=== PATIENT | male | born 1990 | race Two or more races ===

== ENCOUNTER 2020-08-16 20:01 | Emergency (ER) | payer OTHER, SELFPAY ==
[2020-08-16 20:12] VITALS: BP 121/87; PULSE 96; RESP 16; TEMP 36.8; O2SAT 99; BMI 38.7
--- NOTE | 2020-08-16 23:00 | CT_ITS ---
EXAMINATION: CT HEAD WITHOUT CONTRAST CLINICAL INFORMATION: Headache. COMPARISON: None. TECHNIQUE: Contiguous helical images of the brain were obtained without IV contrast. Multiplanar reconstructions were performed. DLP: 774 mGy-cm. FINDINGS: There are no pathologic extra-axial fluid collections. The lateral and third ventricles are prominent and age discordant. The bifrontal dimension at the level of the third ventricle is 4.4 cm. There is equivocal low-attenuation about both frontal horns possibly retail representative of transependymal flow of CSF. There are no demonstrable obstructing lesions. The fourth ventricle is of normal caliber. There is no evidence for acute intraparenchymal hemorrhage or infarct. There is neither mass nor mass effect. There is no shift of midline structures. The paranasal sinuses and mastoid air cells are clear. There are no osseous lesions. IMPRESSION: Lateral and third ventriculomegaly with possible transependymal flow of CSF without demonstrable obstructing lesions. Recommendation is for correlation with brain MRI for identification of the etiology for the dilated ventricles. No acute intraparenchymal or extra-axial hemorrhage is demonstrable. Automated exposure control (Care Dose) Adjustment of the mA and/or kv according to patient size (this includes techniques or standardized protocols for targeted exams where dose is matched to indication / reason for exam; i.e. extremities or head).
--- NOTE | 2020-08-16 23:01 | ED.HA ---
HPI - Headache General Chief Complaint: Headache Stated Complaint: HEADACHE Time Seen by Provider: 08/16/20 23:00 History of Present Illness HPI Narrative: Patient is a 30-year-old male presents today with headache that is on and off. On going for about a month. No fever no chills. No focal weakness. No diaphoresis. Patient did have some nausea associated with this headache. Seems to get worse with change in position. There is no fever no coughing or congestion no neck pain. Vision grossly about the same. Patient never had headache like this before. It comes on intensely for about an hour and it goes away. In in a comes back again. Patient denies any family history of sudden . Any history of subarachnoid hemorrhage. Any history of traveling. No coughing or congestion or upper respiratory symptoms. No change in smell or taste. No history of migraine. MD elicited complaint: headache Related Data Allergies Allergy/AdvReac Type Severity Reaction Status Date / Time No Known Allergies Allergy Verified 08/16/20 20:16 Review of Systems Review of Systems: Constitutional: No Weight loss, No Fever, No Chills, No Night Sweats, No Fatigue, No Malaise ENT/Mouth: No Hearing loss, No Ear Pain, No Nasal Congestion, No Sinus Pain, No Hoarseness, No sore throat, No Rhinorrhea, No Swallowing Difficulty Eyes: No Eye Pain, No Swelling, No Redness, No Foreign Body, No Discharge, No Vision Changes Cardiovascular: No Chest Pain, No SOB, No Dyspnea on Exertion, No Orthopnea, No Edema, No Palpitations Respiratory: No Cough, No Sputum, No Wheezing, No Smoke Exposure, No Dyspnea Gastrointestinal: No Nausea, No Vomiting, No Diarrhea, No Constipation, No abdominal Pain, No Hematochezia, No Melena Genitourinary: no irregular bleeding, No Dysuria, No Urinary Frequency, No Hematuria, No Urinary Incontinence, No Urgency, No Flank Pain, No Urinary Flow Changes, No Hesitancy Musculoskeletal: No joint pain, No Myalgias, No Joint Swelling Skin: No Skin Lesions, No rash Neuro: No Weakness, No Numbness, No Paresthesias, No Loss of Consciousness, No Dizziness, + Headache Psych: No Anxiety/Panic, No Depression, No SI/HI/AH/VH, No Social Issues, Heme/Lymph: No Bruising, No Bleeding,No Lymphadenopathy Endocrine: No Polyuria, No Polydipsia, No Temperature Intolerance [facility] Past Medical History Attestation statement: The following information was validated with the patient. Medical History Asthma Social History Social History Advance Directives: No Advance Directives Information Provided: No Physical Exam Vital Signs: Vital Signs: Vital Signs Temp Pulse Resp BP Pulse Ox 08/16/20 20:12 98.2 F 96 16 121/87 99 Body Mass Index 38.7 Appearance: Alert. Oriented X3. No acute distress. Eyes: Pupils equal, round and reactive to light. ENT: Pharynx normal. Neck: Normal inspection. Neck supple. No lymph nodes noted. No crepitus CVS: Normal heart rate and rhythm. Pulses normal. Normal S1 and S2 Respiratory: No respiratory distress. Breath sounds normal. No Wheezing. No rales Abdomen: Soft and nontender. No rigidity. No distention. good BS x4 Skin: Skin warm and dry. Normal skin color. Normal skin turgor. Extremities: No lower extremity edema. Neurovascular intact to all extremities. No Lacerations. No Rash Neuro: Oriented X 3. No motor deficit. No sensory deficit. Moving all extermities. No slurred speech MDM - Headache MDM Narrative Medical decision making narrative: CT scan of the head showed no acute evidence of bleeding. No acute evidence of fracture. No mass. It did show dilated ventricles. Questionable significance. The finding was discussed with radiology. Patient will need an outpatient MRI. neurologically intact. Patient has no evidence for meningitis. In stable condition. Symptom has resolved. Will discharge patient home close follow-up with Dr. misael borrego the next few days and get MRI done on an outpatient basis. Differential Diagnosis Differential diagnosis: Likely headache Medical Records Attestation: I reviewed the patient's medical records. Lab Data Result diagrams: 08/17/20 00:05 08/17/20 00:05 Labs: Lab Results 08/17/20 08/17/20 Range/Units 00:05 00:05 WBC 15.2 H (4.8-10.8) X10*3/uL RBC 5.37 (4.60-5.80) X10*6/uL Hgb 15.2 (14.0-18.0) g/dl Hct 46.4 (42-52) % MCV 86.4 (80-98) fL MCH 28.3 (27.0-33.0) pg MCHC 32.8 (31.0-36.0) g/dl RDW 13.4 (11.0-16.0) % Plt Count 343 (160-400) X10*3/uL MPV 10.5 (9.4-12.4) fL Immature Gran % (Auto) 0.5 H (0.0-0.4) % Neut % (Auto) 81.0 H (45-73) % Lymph % (Auto) 11.8 L (20-40) % [place] % (Auto) 5.3 (2-11) % Eos % (Auto) 0.9 (0-4) % Baso % (Auto) 0.5 (0-2) % Lymph # (Auto) 1.8 (1.2-4.9) X10*3/uL [place] # (Auto) 0.8 (0.1-1.2) X10*3/uL Eos # (Auto) 0.1 (0.0-0.4) X10*3/uL Baso # (Auto) 0.1 (0.0-0.2) X10*3/uL Abs Immat Gran (auto) 0.08 H (0.00-0.03) X10*3/uL Absolute Neuts (auto) 12.3 H (2.0-8.3) X10*3/uL Absolute Nucleated RBC 0.000 (0.0-0.012) X10*3/uL Nucleated RBC % (auto) 0.0 (0.0-0.2) /100WBC Sodium 139 (135-145) mmol/L Potassium 4.2 (3.3-5.1) mmol/l Chloride 98 (96-108) mmol/L Carbon Dioxide 29 (22-29) mmol/L Anion Gap 16 (12-20) BUN 9 (9-16) mg/dL Creatinine 0.81 (0.5-1.4) mg/dL Estim Creat Clear Calc 201.7 Estimated GFR > 60 Random Glucose 107 (60-115) mg/dL Calcium 10.3 H (8.4-10.2) mg/dL Total Bilirubin 0.5 (0.0-1.0) mg/dL Direct Bilirubin 0.2 (0.0-0.5) mg/dL AST 19 (5-37) U/L ALT 39 (0-40) U/L Alkaline Phosphatase 66 (39-117) U/L Total Protein 7.3 (6.5-8.0) g/dL Albumin 4.7 (3.5-5.0) g/dL Discharge Plan Discharge Clinical Impression: Headache Patient Disposition: Home, Self-Care Instructions: Acute Headache (ED) Referrals: Richard Álvarez MD [Primary Care Provider] - 2 days ( Please get MRI done within the next few days. Your CT scan showed dilated ventricle of questionable significance. Please follow-up closely.)
[2020-08-17 00:13] LABS: MANUAL DIFF FLAG NO
[2020-08-17 00:14] LABS: Basophils Absolute Auto 0.1 X10*3/uL (0.0-0.2); Basophils Percent Auto 0.5 % (0-2); Eosinophils Absolute Auto 0.1 X10*3/uL (0.0-0.4); Eosinophils Percent Auto 0.9 % (0-4); Hematocrit 46.4 % (42-52); Hemoglobin 15.2 g/dl (14.0-18.0); Imm Gran Abs Auto 0.08 X10*3/uL (0.00-0.03); Imm Gran Pct Auto 0.5 % (0.0-0.4); Lymphocytes Absolute Auto 1.8 X10*3/uL (1.2-4.9); Lymphocytes Percent Auto 11.8 % (20-40); Mean Corpuscular HGB Conc 32.8 g/dl (31.0-36.0); Mean Corpuscular Hemoglobin 28.3 pg (27.0-33.0); Mean Corpuscular Volume 86.4 fL (80-98); Mean Platelet Volume 10.5 fL (9.4-12.4); Monocytes Absolute Auto 0.8 X10*3/uL (0.1-1.2); Monocytes Percent Auto 5.3 % (2-11); Neutrophils Absolute Auto 12.3 X10*3/uL (2.0-8.3); Platelet Count 343 X10*3/uL (160-400); Red Blood Count 5.37 X10*6/uL (4.60-5.80); Red Cell Distribution Width 13.4 % (11.0-16.0); White Blood Count 15.2 X10*3/uL (4.8-10.8)
[2020-08-17] MEDS: 0.9 % Sodium Chloride 1,000 ML 999 ML IVCONT (00:14)
[2020-08-17] MEDS: Ketorolac Tromethamine 30 MG/ML VIAL IVPUSH (00:17)
[2020-08-17 00:55] LABS: Alanine Aminotransferase 39 U/L (0-40); Albumin Level 4.7 g/dL (3.5-5.0); Alkaline Phosphatase 66 U/L (39-117); Anion Gap 16 (12-20); Aspartate Amino Transferase 19 U/L (5-37); Bilirubin Direct 0.2 mg/dL (0.0-0.5); Bilirubin Total 0.5 mg/dL (0.0-1.0); Blood Urea Nitrogen 9 mg/dL (9-16); Calcium 10.3 mg/dL (8.4-10.2); Carbon Dioxide 29 mmol/L (22-29); Chloride 98 mmol/L (96-108); Creatinine Clr Calc Pharmacy 201.7; Estimated Glomerular Filt Rate > 60; Glucose Random 107 mg/dL (60-115); Potassium 4.2 mmol/l (3.3-5.1); Sodium 139 mmol/L (135-145); Total Protein 7.3 g/dL (6.5-8.0)
== END 2020-08-17 01:44 | disposition home or self-care (01) ==
PROVIDERS: Emergency Provider Emergency Medicine Emergency Medical Services; PCP Internal Medicine
DX: R51.9 Headache, unspecified (principal); R93.0 Abnormal findings on diagnostic imaging of skull and head, not elsewhere classified
CPT/HCPCS: 36415; 70450; 80048; 80076; 85025; 96361; 96374; 99284; J1885

== ENCOUNTER 2020-08-25 18:36 | Outpatient (REF) | payer OTHER, SELFPAY ==
--- NOTE | 2020-08-25 18:56 | MR_ITS ---
EXAMINATION: MR BRAIN WITHOUT CONTRAST CLINICAL INFORMATION: Headache. COMPARISON: CT brain 08/16/2020 TECHNIQUE: Multisequential and multiprojectional images of brain were obtained without contrast. FINDINGS: There is no restricted diffusion visualized to suspect an acute ischemia. There is no flow void signal or abnormal gradient-echo sequence to suggest any acute or remote hemorrhage or hemosiderin products. There is no edema or mass effect. No abnormal periventricular signal changes, edema or mass effect visualized. The lateral ventricles are symmetrical in size and configuration with minimal prominence. The ya to white matter differentiation is maintained. There are mild T2/FLAIR signal changes and thickening lateral wall along both lateral ventricles. It has corresponding low signal on T1. There is mild prominence third ventricle. In the imaged periventricular white matter, there is no abnormal signal visualized. There is no edema or mass effect. The ya to white matter differentiation is maintained with no abnormal signal seen. Normal flow void signal noted in the major cerebral vasculature. MR/MR head/brain wo con IMPRESSION: There is no acute intracranial process. Symmetric enlargement of third and lateral ventricles with hyperintense signal along the lateral margin of lateral ventricle and adjacent white matter. This could be secondary transependymal seepage of CSF secondary to aqueductal narrowing. Further neurological evaluation can be performed. However, there is no flow void signal seen in the ya to white matter to suspect diffuse axonal injury ([place]CI) from trauma.
== END 2020-08-25 18:37 | disposition home or self-care (01) ==
LOC: HO.MRI 18:36
PROVIDERS: Visit Provider Internal Medicine
DX: R51.9 Headache, unspecified (principal)
CPT/HCPCS: 70551